=== PATIENT | female | born 1975 | race Caucasian/White ===

== ENCOUNTER 2018-07-04 13:16 | Observation (INO) | payer BC ==
[2018-07-04 14:23] LABS: ADD MAN DIFF? NO
[2018-07-04 14:25] LABS: BASOPHIL # 0.1 10^3/ul (0.0-0.1); BASOPHILS % 0.4 % (0.0-2.0); EOSINOPHILS # 0.2 10^3/ul (0.0-0.5); EOSINOPHILS % 1.6 % (0.0-7.0); HEMATOCRIT 39.9 % (37.0-47.0); HEMOGLOBIN 13.3 g/dl (12.0-16.0); LYMPHOCYTES # 3.7 10^3/ul (0.8-2.9); LYMPHOCYTES % 28.8 % (15.0-51.0); MEAN CORPUSCULAR HEMOGLOBIN 27.9 pg (29.0-33.0); MEAN CORPUSCULAR HGB CONC 33.3 g/dl (32.0-37.0); MEAN CORPUSCULAR VOLUME 83.6 fl (82.0-101.0); MEAN PLATELET VOLUME 8.5 fl (7.4-10.4); MONOCYTE # 0.5 10^3/ul (0.3-0.9); MONOCYTES % 4.2 % (0.0-11.0); NEUTROPHIL # 8.4 10^3/ul (1.6-7.5); NEUTROPHILS % 64.6 % (39.0-77.0); RED BLOOD COUNT 4.77 10^6/ul (4.20-5.40); RED CELL DISTRIBUTION WIDTH 12.5 % (11.5-14.5)
[2018-07-04 14:35] LABS: ANION GAP 11 (5-13); BLOOD UREA NITROGEN 13 mg/dl (7-20); CALCIUM 9.9 mg/dl (8.4-10.2); CARBON DIOXIDE 24 mmol/L (21-31); CHLORIDE 106 mmol/L (97-110); CREATININE 0.81 mg/dl (0.44-1.00); GLUCOSE 102 mg/dl (70-220); INR 0.88; POTASSIUM 4.3 mmol/L (3.5-5.1); PT RATIO 0.9; SODIUM 141 mmol/L (135-144)
[2018-07-04 14:36] LABS: PARTIAL THROMBOPLASTIN TIME 30.4 Sec (23.0-35.0)
[2018-07-04 14:56] LABS: HOLD TRANSMISSIONS 1
[2018-07-04 15:01] LABS: PLATELET COUNT 569 10^3/UL (140-415)
[2018-07-04] MEDS ORDERED: ROPIVACAINE 0.5 % 30 ML VIAL (15:35)
[2018-07-04] MEDS ORDERED: MIDAZOLAM 1 MG/ML 2 ML INJ ×2 (15:35→15:49)
[2018-07-04] MEDS: MIDAZOLAM 1 MG/ML 2 ML INJ IV (15:57)
[2018-07-04] MEDS: POLYMYXIN/BACITRACIN 1L IRRIG IRR (16:49)
[2018-07-04] MEDS: BACITRACIN/POLYMYXIN 28.35 GM OINT TOP (16:49)
[2018-07-04] MEDS: ROPIVACAINE 0.5 % 30 ML VIAL (16:49)
[2018-07-04] MEDS ORDERED: FENTAnyl 50 MCG/ML VIAL (17:04)
[2018-07-04] MEDS ORDERED: CEFAZOLIN 1 GM INJ (19:18)
[2018-07-04] MEDS ORDERED: LIDOCAINE 100 MG SYRINGE (19:18)
[2018-07-04] MEDS ORDERED: SUCCINYLCHOLINE CHLORIDE 100 MG/5 ML SYG IV (19:18)
[2018-07-04] MEDS ORDERED: ROCURONIUM 50 MG INJ (19:18)
[2018-07-04] MEDS ORDERED: SUGAMMADEX SODIUM 200 MG/2 ML VIAL IV (19:18)
[2018-07-04] MEDS ORDERED: PROPOFOL 20 ML (19:18)
[2018-07-04] MEDS ORDERED: ONDANSETRON 4 MG INJ (19:58)
[2018-07-04] MEDS ORDERED: CEFAZOLIN 1 GM INJ IV (20:00)
[2018-07-04] MEDS ORDERED: DIPHENHYDRAMINE 25 MG CAP PO (20:00)
[2018-07-04] MEDS ORDERED: FENTAnyl 50 MCG/ML VIAL IV ×2 (20:08)
[2018-07-04] MEDS ORDERED: hydrALAzine 20 MG INJ IV (20:09)
[2018-07-04] MEDS ORDERED: HYDROmorphONE 1 MG/5 ML IV SYRINGE IV ×3 (20:09→20:10)
[2018-07-04] MEDS ORDERED: OXYCODONE/ACETAMINOPHEN (5/325) TAB PO ×2 (20:10→20:11)
[2018-07-04] MEDS ORDERED: LABETALOL HCL 20MG INJ IV (20:10)
[2018-07-04] MEDS: KETOROLAC 30 MG INJ IV (20:11)
[2018-07-04] MEDS: ONDANSETRON 4 MG INJ IV (20:15)
[2018-07-04] MEDS: FENTAnyl 50 MCG/ML VIAL IV ×2 (20:19→20:58)
[2018-07-04] MEDS: PROCHLORPERAZINE 10 MG INJ IM (20:28)
[2018-07-04] MEDS: ACETAMINOPHEN 1000MG/100ML IV 100 ML IVPB (20:34)
[2018-07-04] MEDS: PROCHLORPERAZINE 10 MG INJ IV (20:57)
[2018-07-04] MEDS: oxyCODONE 5 MG TAB PO (22:17)
[2018-07-04] MEDS: GABAPENTIN 300 MG CAP PO (23:32)
[2018-07-04] MEDS: HYDROmorphONE 1 MG/ML SYG IV (23:48)
[2018-07-05] MEDS: CEFAZOLIN 1 GM/50 ML (PMX) 50 ML IVPB ×3 (01:47→17:32)
[2018-07-05] MEDS: oxyCODONE 5 MG TAB PO ×5 (01:51→17:00)
[2018-07-05] MEDS: HYDROmorphONE 1 MG/ML SYG IV ×3 (04:45→13:33)
[2018-07-05] MEDS: ONDANSETRON 4 MG INJ IV ×4 (06:39→17:45)
[2018-07-05] MEDS: GABAPENTIN 300 MG CAP PO ×3 (09:50→19:46)
[2018-07-05 10:51] LABS: ADD MAN DIFF? NO
[2018-07-05 10:54] LABS: BASOPHILS % 0.3 % (0.0-2.0); EOSINOPHILS # 0.1 10^3/ul (0.0-0.5); EOSINOPHILS % 0.9 % (0.0-7.0); HEMATOCRIT 31.8 % (37.0-47.0); HEMOGLOBIN 10.5 g/dl (12.0-16.0); LYMPHOCYTES # 3.1 10^3/ul (0.8-2.9); LYMPHOCYTES % 25.1 % (15.0-51.0); MEAN CORPUSCULAR HEMOGLOBIN 27.8 pg (29.0-33.0); MEAN CORPUSCULAR VOLUME 84.1 fl (82.0-101.0); MEAN PLATELET VOLUME 8.8 fl (7.4-10.4); MONOCYTE # 0.7 10^3/ul (0.3-0.9); NEUTROPHIL # 8.4 10^3/ul (1.6-7.5); NEUTROPHILS % 67.4 % (39.0-77.0); PLATELET COUNT 426 10^3/UL (140-415); RED BLOOD COUNT 3.78 10^6/ul (4.20-5.40); RED CELL DISTRIBUTION WIDTH 12.8 % (11.5-14.5)
[2018-07-05 10:54] LABS: WHITE BLOOD COUNT 12.4 10^3/ul (4.8-10.8)
[2018-07-05 11:16] LABS: ALANINE AMINOTRANSFERASE 47 IU/L (13-69); ALBUMIN/GLOBULIN RATIO 0.93; ALKALINE PHOSPHATASE 49 IU/L (42-121); ANION GAP 6 (5-13); ASPARTATE AMINO TRANSFERASE 46 IU/L (15-46); BILIRUBIN,INDIRECT 0.3 mg/dl (0-1.1); BILIRUBIN,TOTAL 0.3 mg/dl (0.2-1.3); BLOOD UREA NITROGEN 11 mg/dl (7-20); CALCIUM 8.6 mg/dl (8.4-10.2); CARBON DIOXIDE 26 mmol/L (21-31); CHLORIDE 106 mmol/L (97-110); CREATININE 0.77 mg/dl (0.44-1.00); GLUCOSE 108 mg/dl (70-220); SODIUM 138 mmol/L (135-144); TOTAL PROTEIN 6.2 g/dl (6.1-8.1)
[2018-07-05] MEDS: ACETAMINOPHEN 500 MG TAB PO (14:00)
[2018-07-05] MEDS: RIVAROXABAN 10 MG TABLET PO (17:32)
== END 2018-07-05 20:30 | disposition home or self-care (01) ==
LOC: SDS 13:16 → MS1 19:50
DX: S82.871A Displaced pilon fracture of right tibia, initial encounter for closed fracture (principal); S82.831A Other fracture of upper and lower end of right fibula, initial encounter for closed fracture; W01.0XXA Fall on same level from slipping, tripping and stumbling without subsequent striking against object, initial encounter
CPT/HCPCS: 73610; 73610-RT; 80048; 80053; 82306; 84703; 85025; 85610; 85730; 97116; 97161; 97530; G0378